=== PATIENT | male | born 1945 | race Caucasian/White ===

== ENCOUNTER → 2022-05-10 | Outpatient (CLI) | payer OTHER | END | disposition home or self-care (01) | LOC: LABPAT 11:37 | PROVIDERS: ATTEND Orthopaedic Surgery | DX: Z01.812 Encounter for preprocedural laboratory examination (principal); Z22.322 Carrier or suspected carrier of Methicillin resistant Staphylococcus aureus; M17.12 Unilateral primary osteoarthritis, left knee | CPT/HCPCS: 87070 ==

== ENCOUNTER 2022-06-20 05:36 | Day surgery (SDC) | payer OTHER ==
[2022-06-13 10:59] VITALS: BMI 29.0
[~2022-06-20 05:36] MED LIST: ACETAMINOPHEN TAB 500 MG TAB PO PRN; MELOXICAM 7.5 MG TAB PO PRN; TRANEXAMIC ACID IN NACL,ISO-OS 1,000 MG in SALINE 1 100ML.BAG IVPB PRN
[2022-06-20] MEDS ORDERED: ONDANSETRON 4 MG/2 ML VIAL IVP ONE (06:06)
[2022-06-20] MEDS ORDERED: DEXAMETHASONE SOD PHOSPHATE 4 MG/ML 1 ML VIAL IV ONE (06:06)
[2022-06-20] MEDS ORDERED: MIDAZOLAM 2 MG/2 ML VIAL IV PRN (06:06)
[2022-06-20] MEDS ORDERED: ACETAMINOPHEN TAB 500 MG TAB PO ONE (06:45)
[2022-06-20] MEDS: LACTATED RINGERS 1,000 ML IV SCH ×2 (07:00→19:02)
[2022-06-20] MEDS ORDERED: fentaNYL (PF) 50 MCG/ML 2 ML AMP IV ONE (07:06)
[2022-06-20] MEDS ORDERED: ROCURONIUM 10 MG/ML (5 ML VIAL) IV ONE (07:22)
[2022-06-20] MEDS ORDERED: LIDOCAINE 2% INJ 20 MG/ML (2 ML VIAL) ONE (07:22)
[2022-06-20] MEDS ORDERED: PROPOFOL 10 MG/ML 20 ML VIAL IV ONE (07:22)
[2022-06-20] MEDS ORDERED: fentaNYL (PF) 50 MCG/ML 2 ML AMP ONE (07:22)
[2022-06-20] MEDS ORDERED: GLYCOPYRROLATE 0.2 MG/ML 2 ML VIAL ONE (07:22)
[2022-06-20] MEDS ORDERED: NEOSTIGMINE 1 MG/ML 10 ML VIAL ONE (07:22)
[2022-06-20] MEDS ORDERED: SODIUM CHLORIDE 0.9% (PF) 10 ML VIAL ONE (07:22)
[2022-06-20] MEDS ORDERED: ROPIVACAINE 5 MG/ML 30 ML VIAL ONE (07:22)
[2022-06-20] MEDS ORDERED: TRANEXAMIC ACID IN NACL,ISO-OS 1,000 MG/100 ML BAG ONE (07:22)
[2022-06-20] MEDS ORDERED: LACTATED RINGERS 1,000 ML IV ONE ×2 (07:36→09:10)
--- NOTE | 2022-06-20 08:13 | HP ---
HISTORY AND PHYSICAL Surgery is scheduled for 06/20/2022. HISTORY OF PRESENT ILLNESS: Yassine Salas is a 76-year-old patient seen with symptomatic left knee osteoarthritis. We discussed options for treatment. He elected to proceed with left total knee arthroplasty. Consent was obtained. Medical clearance was provided. PAST MEDICAL HISTORY: Gastroesophageal reflux disease and hypertension. PAST SURGICAL HISTORY: Noncontributory. DAILY MEDICATIONS: 1. Benazepril. 2. Amlodipine. 3. Diclofenac. 4. Omeprazole. ALLERGIES: None. SOCIAL HISTORY: Denies current tobacco use. PHYSICAL EVALUATION OF THE LEFT KNEE: Range of motion is -4/5 to 125. Mild effusion. Tenderness in medial joint line. Crepitus in medial and patellofemoral compartments with range of motion. Pain with patellofemoral compression. Ligaments are stable. Hip rotation is without pain. Distal neurovascular exam is intact. LEFT KNEE RADIOGRAPHS: Reveal severe osteoarthritic changes. IMPRESSION: 1. Left knee osteoarthritis. 2. Hypertension. 3. Hyperlipidemia. PLAN: Left total knee arthroplasty. MMODL / TOANN: [id number] /
[2022-06-20] MEDS ORDERED: ceFAZolin 1,000 MG in SODIUM CHLORIDE 0.9% 1,000 ML IRRIGATION ONE (09:07)
[2022-06-20] MEDS ORDERED: HYDROmorphone 0.5 MG/0.5 ML SYRINGE IVP PRN ×2 (09:10)
[2022-06-20] MEDS ORDERED: ONDANSETRON 4 MG/2 ML VIAL IVP PRN (09:10)
[2022-06-20] MEDS ORDERED: HYDROcodone/APAP 5-325MG 1 EACH TAB PO PRN (09:10)
[2022-06-20] MEDS ORDERED: NALOXONE 0.4 MG/ML 1 ML VIAL IV PRN (09:10)
--- NOTE | 2022-06-20 09:10 | P.OP ---
Date of Procedure: 06/20/22 Preoperative Diagnosis: Left knee osteoarthritis Postoperative Diagnosis: Left knee osteoarthritis Procedure(s) Performed: Left total knee arthroplasty Implants: 1. Depuy attune size 8 left cruciate retaining cemented femur 2. Depuy attune size 8 fixed bearing cemented tibial baseplate 3. Depuy attune size 8 fixed bearing cruciate retaining 14 mm polyethylene tibial insert 4. Depuy attune 41 mm all polyethylene cemented patella Anesthesia: GETA, regional (Adductor canal catheter, Ipack block) Surgeon: Emeterio Torres Exterior Work Helper #1: Rigo Ramos Estimated Blood Loss (ml): 40 Pathology: other (Bone) Condition: stable Disposition: PACU Indications for Procedure: 76-year-old patient seen with symptomatic left knee osteoarthritis. After treatment options were discussed, he elected to proceed with total knee art hroplasty. Operative Findings: See description of procedure Description of Procedure: Patient was taken to the operative suite after having an adductor canal catheter placed by the department of anesthesia as well as an Ipack block for postoperative pain management. Patient underwent a general anesthetic by the department of anesthesia. Patient was given preoperative IV intake antibiotics and TXA. A well-padded tourniquet was placed about the left lower extremity. The lower extremity was then prepped and draped in the normal sterile orthopedic fashion. The extremity was elevated, a tourniquet was insufflated to 300. A standard anterior incision was made sharply through skin. Dissection was taken down through the subcutaneous soft tissues down to the extensor mechanism. A medial arthrotomy was performed, patella was everted and knee was flexed. There was advanced osteoarthritis noted. I introduced my distal intramedullary fem oral drill. I then introduced the distal femoral cutting jig. Samm THOMSON secured the cutting jig with 2 pins. I held retractors in position while Samm THOMSON performed the distal femoral resection through the guide area we now removed her distal femoral cutting guide. We now placed our 4-in-1 femoral cutting block and positioned and it was secured with 2 pins by Samm THOMSON while I held the block in position. The distal femoral finishing was now completed. A proximal tibial cutting guide was positioned. I held the guide in the appropriate position with both hands well Samm THOMSON inserted stabilizing pins into the guide. Proximal tibial cut was made. We now placed a trial femoral component into position, along with an appropriate size tibial tray and insert. We now took the knee through range of motion and had full extension good flexion and good overall soft tissue balance noted. The patella was everted and stabilized with 2 towel clips held by Samm THOMSON while I performed a flush with patellar quad tendon utilizing a fresh sawblade. We templated the patella, appropriate drill holes were made. An appropriate trial patella was positioned, knee was taken through full range of motion with the patella tracking very nicely. The trial patella was removed. Drill holes were made through the femoral component. All trial components were removed after marking off the appropriate rotation of the tibia. Retractors were now positioned along the proximal tibia. An appropriate keel punch was made with the appropriate size tibial guide by myself on Samm THOMSON assisted by holding retractors. At this point appropriate size implants were chosen and opened. The joint was irrigated copiously with pulse lavage mechanical irrigation. The posterior capsule was infiltrated with local analgesic. The wound was irrigated with pulse lavage mechanical irrigation. We mixed antibiotic methylmethacrylate. We placed the knee into flexion. We placed multiple retractors assisted by Samm THOMSON to expose the proximal tibia. Once the methyl methacrylate was ready, the tibial component was cemented into place removing any excess methylmethacrylate form by both myself and Samm THOMSON. The femoral component was cemented into place removing the removing any excess methylmethacrylate performed by both myself and Samm THOMSON. We then inserted the appropriate size polyethylene tibial insert. We made sure that it was locked into position. We took the knee into full extension, and then back in a flexion making sure we had removed any excess methylmethacrylate. The patellar component was then cemented down and secured with clamp. Excess methylmethacrylate removed. We kept the knee in full extension, patellar clamp in position until methylmethacrylate had hardened. Once it had hardened the patellar clamp was removed. The knee was taken through full range of motion. The patella tracked nicely. There was good soft tissue balancing. The tourniquet was now released. Additional hemostasis was achieved via electrocautery. A second gram of TXA was given. The wound again was irrigated with pulse lavage mechanical irrigation. The superficial soft tissues were infiltrated local analgesic. The extensor mechanism was repaired with Ethibond suture. We checked the repair with range of motion and it was stable. The subcutaneous soft tissues were repaired with Vicryl in layers. The skin was approximated with pernio/Dermabond. Sterile dressings were applied followed by loose web roll and David bandage. The patient was transferred to a bed, and taken to recovery in stable and satisfactory condition. Samm THOMSON assisted with this complex procedure.
--- NOTE | 2022-06-20 09:24 | P.ANPRN ---
Procedure Note - Anesthesia - Nerve Block Performed Left Adductor Canal Infusion Time Out Performed: Yes (0705) Date of Procedure: 06/20/22 Procedure Start Time: 07:06 Procedure Stop Time: 07:12 Location of Patient: PreOp Indication: Acute Post-Operative Pain, Requested by Surgeon Specifically requested for management of pain by DrBethany: Emeterio Torres Sedation Type: Sedate with meaningful contact maintained Preparation: Sterile Prep, Sterile Dressing Position: Supine Catheter Depth at Skin (cm): 8 Catheter: Indwelling Needle Types: Pajunk Needle Gauge: 18 Ultrasound used to visualize needle placement: Yes Ultrasound used to observe medication spread: Yes Injectate: 0.5% Ropivacaine (see comment for volume) (15cc+ 5cc nacl pf) Blood Aspirated: No Pain Paresthesia on Injection Noted: No Resistance on Injection: Normal Image Stored and Saved: Yes Events: Uneventful and Well Tolerated
--- NOTE | 2022-06-20 09:26 | P.ANPRN ---
Procedure Note - Anesthesia - Nerve Block Performed Left iPack Single Time Out Performed: Yes (0705) Date of Procedure: 06/20/22 Procedure Start Time: 07:13 Procedure Stop Time: 07:16 Location of Patient: PreOp Indication: Acute Post-Operative Pain, Requested by Surgeon Specifically requested for management of pain by DrBethany: Emeterio Torres Sedation Type: Sedate with meaningful contact maintained Preparation: Sterile Prep Position: Supine Catheter: None Needle Types: Pajunk Needle Gauge: 21 Ultrasound used to visualize needle placement: Yes Ultrasound used to observe medication spread: Yes Injectate: 0.5% Ropivacaine (see comment for volume) (15cc + 5cc nacl pf) Blood Aspirated: No Pain Paresthesia on Injection Noted: No Resistance on Injection: Normal Image Stored and Saved: Yes Events: Uneventful and Well Tolerated
[2022-06-20] MEDS: HYDROmorphone 0.5 MG/0.5 ML SYRINGE IVP PRN ×3 (09:44→20:23)
[2022-06-20] MEDS ORDERED: ROPIVACAINE 0.2%-NS ON-Q PUMP 1,090 MG, EMPTY PAIN BALL 1 EACH MISCELLANE PRN (09:55)
--- NOTE | 2022-06-20 10:03 | XR ---
EXAMINATION TYPE: XR knee limited LT DATE OF EXAM: 06/20/2022 COMPARISON: NONE HISTORY: 76-year-old male evaluation for postoperative abnormality in alignment TECHNIQUE: 2 views FINDINGS: Images show placement of left total knee arthroplasty. Both distal femoral and proximal tibial compon ents of the prosthesis are well seated without periprosthetic fracture. Alignment grossly anatomic. A nterior soft tissue swelling with soft tissue air as well as intra-articular air related to recent op eration. IMPRESSION: Uncomplicated postoperative appearance left total knee arthroplasty.
[2022-06-20] MEDS ORDERED: HYDROmorphone 0.5 MG/0.5 ML SYRINGE IVP ONE (10:05)
[2022-06-20] MEDS ORDERED: HYDROcodone/APAP 7.5-325MG 1 EACH TAB PO ONE (10:56)
[2022-06-20] MEDS ORDERED: ceFAZolin 1,000 MG VIAL IVPB ONE (11:14)
--- NOTE | 2022-06-20 16:33 | P.CONS ---
History of Present Illness - Reason for Consult Consult date: 06/20/22 - Chief Complaint Medical management - History of Present Illness 76-year-old man with medical history of anxiety, osteoarthritis, hypertension, BPH, history of alcohol abuse now 39 year sober presented for elective total knee arthroplasty. Patient is doing well postoperatively, his only complaint is regarding restarting his anxiety medication. He has no complaints of pain at this time. His review of systems is negative for fevers, chills, nausea, vomiting, chest pain, palpitations, syncopal, presyncopal, cough, dyspnea, abdominal pain, constipation, diarrhea, dysuria, dyschezia, numbness/weakness of extremities. At the time my evaluation, patient is afebrile, 142/78, 102, 92% on room air. No labs or imaging to review. All Systems reviewed and pertinent positives and negatives noted in HPI, all other symptoms are negative Gen: in no apparent distress, resting comfortably in bed Eyes: PERRL, no scleral injection or icterus HENT: normocephalic, atraumatic, good hearing acuity, moist mucous membranes Neck: no tracheal deviation, full range of motion Resp: good air exchange, breathing comfortably with no accessory muscle use, no tactile fremitus, clear to auscultation bilaterally CVS: good distal perfusion x 4, no pitting edema, regular rate and rhythm GI: soft, no tenderness to palpation, periumbilical area, ND, no hepatosplenomegaly : no suprapubic tenderness, no CVAT, whatley catheter not present MSK: no clubbing, no cyanosis, no noted contractures of extremities Skin: no noted rashes, petechiae; temperature of skin is appropriate Neuro: moving all extremities without signs of weakness, CN II-XII intact Psych: cooperative, euthymic mood, insight and judgment intact Assessment/plan: Anxiety Hypertension BPH -Resume home medications -CBC, BMP, magnesium in the morning Osteoarthritis Status post TKA -Care per primary team Thank you for this consult. A member of our team is available 29/05, please reach out via perfect serve should any questions or concerns arise. Past Medical History Past Medical History: Cancer, GERD/Reflux, Hearing Disorder / Deafness, Hypertension, Osteoarthritis (OA) Additional Past Medical History / Comment(s): Hx prostate cancer 2020, had radiation, then in 11/27 had high dose radiation. Very poor hearing. History of Any Multi-Drug Resistant Organisms: None Reported Past Surgical History: Orthopedic Surgery Additional Past Surgical History / Comment(s): Left shoulder surgery, metal placed. Bilateral cataract surgery. All teeth extracted. Past Anesthesia/Blood Transfusion Reactions: No Reported Reaction Past Psychological History: Anxiety, Depression, PTSD Smoking Status: Former smoker Past Alcohol Use History: Abuse Additional Past Alcohol Use History / Comment(s): Smoked cigars occasionally, quit 4 yrs ago. 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 Past Drug Use History: None Reported - Past Family History Mother Family Medical History: No Reported History Medications and Allergies Home Medications Medication Instructions Recorded Confirmed Type Benazepril HCl 40 mg PO QAM 06/13/22 06/13/22 History Cetirizine HCl [Zyrtec] 10 mg PO DAILY 06/13/22 06/13/22 History Diclofenac Sodium Gel [Voltaren 100 gm TOPICAL DIRECTED PRN 06/13/22 06/13/22 History Gel] Melatonin 3 mg PO HS 06/13/22 06/13/22 History Mirtazapine 45 mg PO HS 06/13/22 06/13/22 History Omeprazole 20 mg PO QAM 06/13/22 06/13/22 History Tamsulosin [Flomax] 0.4 mg PO HS 06/13/22 06/13/22 History amLODIPine BESYLATE 10 mg PO QAM 06/13/22 06/13/22 History buPROPion HCL [Wellbutrin SR] 150 mg PO 1200 06/13/22 06/13/22 History buPROPion HCL [buPROPion HCL SR] 300 mg PO QAM 06/13/22 06/13/22 History busPIRone HCL [Buspirone HCl] 10 mg PO TID 06/13/22 06/13/22 History Allergies Allergy/AdvReac Type Severity Reaction Status Date / Time No Known Allergies Allergy Verified 06/13/22 10:38 Physical Exam Osteopathic Statement: *. No significant issues noted on an osteopathic structural exam other than those noted in the History and Physical/Consult. Vitals: Vital Signs Temp Pulse Pulse Resp BP Pulse Ox 06/20/22 15:03 102 H 143/78 92 L 06/20/22 14:31 98 133/77 92 L 06/20/22 14:16 101 H 125/74 93 L 06/20/22 14:02 98.9 F 106 H 16 121/76 93 L 06/20/22 13:46 112 H 142/80 95 06/20/22 12:40 98 16 143/82 95 06/20/22 12:12 111 H 16 168/78 93 L 06/20/22 11:25 97 16 131/77 97 06/20/22 11:10 98 15 131/77 97 06/20/22 10:55 95 16 135/76 97 06/20/22 10:40 97 15 136/83 95 06/20/22 10:30 93 16 150/73 97 06/20/22 10:15 93 16 155/72 96 06/20/22 09:59 86 16 153/73 96 06/20/22 09:45 75 16 164/74 97 06/20/22 09:34 97.3 F L 83 16 141/67 95 06/20/22 07:15 73 18 152/73 100 06/20/22 06:30 97.1 F L 94 20 140/76 97 Intake and Output 06/20/22 06/20/22 06/20/22 06:59 14:59 22:59 Intake Total 1351 Output Total 40 Balance 1311 Intake: IV 1351 Output: Estimated Blood Loss 40 Other: Weight 99.1 kg
[2022-06-20] MEDS: busPIRone HCl 10 MG TAB PO SCH ×2 (17:14→20:20)
[2022-06-20] MEDS: HYDROcodone/APAP 7.5-325MG 1 EACH TAB PO PRN (19:06)
[2022-06-20] MEDS ORDERED: MIRTAZAPINE 45 MG TABLET PO SCH (21:00)
[2022-06-20] MEDS ORDERED: MELATONIN 3 MG TABLET PO SCH (21:00)
[2022-06-20] MEDS ORDERED: TAMSULOSIN 0.4 MG CAP.ER.24H PO SCH (21:00)
[2022-06-21] MEDS: LACTATED RINGERS 1,000 ML IV SCH (01:25)
[2022-06-21] MEDS: HYDROmorphone 0.5 MG/0.5 ML SYRINGE IVP PRN (03:30)
[2022-06-21] MEDS: HYDROcodone/APAP 7.5-325MG 1 EACH TAB PO PRN ×2 (05:58→11:16)
--- NOTE | 2022-06-21 07:09 | P.PN ---
Progress Note - Text Progress Note Date: 06/21/22 patient was seen and evaluated at bedside. Status post postoperative day 1 for left side total knee arthroplasty patient had adductor canal catheter for postop pain control. Patient rated pain at rest 3-4 out of 10 in severity. Patient describes pain is aching, throbbing type on the sides of the knee and back of the knee. Patient started walking with support. With activity patient pain levels are 5-6 out of 10 in severity. With the help of oral pain medications pain levels are tolerable. Patient denied any weakness/ numbness in lower extremities. patient denied any fever, pain over the catheter site. Physical exam: Patient vital signs stable Patient is alert awake oriented 3 responding to all questions appropriately Examination of the catheter site showed dressing intact, no leaking fluid around the catheter, no redness, no tenderness over the catheter insertion area. plan: status post postoperative day 1 for left-sided total knee arthroplasty with adductor canal catheter for pain control. Patient was discussed to continue the medication at the rate of 8 mL per hour until the pump is completely empty and instructed the patient how to discontinue the catheter.
[2022-06-21] MEDS ORDERED: PANTOPRAZOLE 40 MG TABLET PO SCH (07:30)
[2022-06-21 08:16] VITALS: BP 160/86; PULSE 91; RESP 18; TEMP 99.6
[2022-06-21] MEDS ORDERED: lisinopriL 20 MG TAB PO SCH (09:00)
[2022-06-21] MEDS ORDERED: LORATADINE 10 MG TAB PO SCH (09:00)
[2022-06-21] MEDS ORDERED: amLODIPine 10 MG TAB PO SCH (09:00)
[2022-06-21] MEDS ORDERED: ENOXAPARIN 40 MG/0.4 ML SYRINGE SQ SCH (09:00)
[2022-06-21] MEDS ORDERED: buPROPion SR 150 MG TABLET.ER PO SCH ×2 (09:00→12:00)
[2022-06-21 09:13] LABS: Basophils # (A) 0.03 X 10*3/uL (0.00-0.10); Basophils % (A) 0.3 %; Eosinophils # (A) 0.02 X 10*3/uL (0.04-0.35); Eosinophils % (A) 0.2 %; HCT 38.5 % (39.6-50.0); HGB 12.2 g/dL (13.0-17.0); Immature Grans, Automated 0.4 %; Lymphocytes % (A) 16.9 %; MCH 29.6 pg (27.0-32.0); MCHC 31.7 g/dL (32.0-37.0); MCV 93.4 fL (80.0-97.0); Mean Platelet Volume 10.1 fL (9.5-12.2); Monocytes # (A) 1.11 X 10*3/uL (0.20-1.00); Monocytes % (A) 9.8 %; NRBC Per 100 WBC 0 /100 WBCS (0.0-0.0); Neutrophils # (A) 8.17 X 10*3/uL (1.80-7.70); Neutrophils % (A) 72.4 %; Platelet Count 286 X 10*3/uL (140-440); RBC 4.12 X 10*6/uL (4.40-5.60); RDW 13.5 % (11.5-14.5); WBC 11.27 X 10*3/uL (4.50-10.00)
[2022-06-21 09:17] LABS: African American GFR (CKD) 76.3 (60.0-200.0); Anion Gap 10.2 mmol/L (10.00-18.00); BUN/Creat Ratio 11.3 Ratio (12.00-20.00); Blood Urea Nitrogen 12.2 mg/dL (9.0-27.0); Calcium 9.3 mg/dL (8.7-10.3); Carbon Dioxide 26.8 mmol/L (20.0-27.5); Magnesium 1.9 mg/dL (1.5-2.4); Non-African American GFR(CKD) 65.9 (60.0-200.0); Potassium 4.9 mmol/L (3.5-5.5)
[2022-06-21] MEDS: busPIRone HCl 10 MG TAB PO SCH (09:41)
--- NOTE | 2022-06-21 10:02 | P.DS ---
Providers Date of admission: 06/20/2022 Expected date of discharge: 06/21/22 Attending physician: Emeterio Torres Consults: 06/20/22 14:28 Consult Physician Routine Consulting Provider: Seble Salcedo Consult Reason/Comments: Medical Management s/p left total knee arthroplasty Do you want consulting provider notified?: Yes Primary care physician: Stated None Hospital Course: Date of admission: 06/20/2022 Date of discharge: 06/21/2022 Admission diagnosis: Left knee osteoarthritis Discharge diagnosis: Same Attending physician: Dr. Torres Surgical procedures: Left total knee arthroplasty Brief history: Patient is a 76-year-old male with a history of progressive primary left knee osteoarthritis. At this point patient has failed conservative treatment measures and has opted to proceed with a elective left total knee arthroplasty. Hospital course: Details of patient's surgery can be found in operative report. Patient tolerated the procedure well and was subsequently transported to orthopedic floor. Patient's orthopeidc and medical care was provided daily. Patient had daily laboratory tests performed for evaluation of overall blood counts. Patient had daily physical therapy to include strengthening range of motion as well as education with walker ambulation. Patient was treated with Lovenox for their postoperative DVT prophylaxis during their inpatient stay. Patient was noted to have a relatively uneventful postoperative course. Patient reported satisfactory pain control with oral pain medications by postoperative day 1. Patient showed satisfactory progress with physical therapy. Patient moved steadily through the program and had no difficulty meeting the goals by postoperative day 1. Given patient's otherwise satisfactory course and having met physical therapy goals, plan is to discharge patient home with health services on postoperative day 1. Discharge condition/disposition: Patient will be discharged home with health services in stable condition. Discharge medications: Instructions are given on resumption of patient's normal daily medications per primary care recommendation, in addition patient will be prescribed [place] 7.5 mg/325 mg; Colace; aspirin 81 mg twice a day 30 days. Discharge instructions: 1. Wound care and infection precautions, keep incision dry and covered while showering, no lotions, creams, moisturizers. No soaking, tubs, pools, hottubs. Do not scrub over the incision. 2. Weight-bear as tolerated with walker / cane until follow-up. 3. Ice and elevate when necessary. Do not exceed 20 minutes per hour with ice pack. 4. Utilize compression sleeve until seen at first follow up appointment. 5. Visiting nursing care. 6. Home physical therapy including home CPM. 7. Pain meds and anticoagulants per prescription. 8. Pain medication has potential to cause constipation. Increase oral fluid and fiber intake. Contact primary care provider if you have not had a bowel movement within 48 hours after discharge 9. No anti-inflammatory medication until discussed at first post operative visit, this including Motrin, Aleve, Mobic, Diclofenac. 10. Follow up in office at 2 weeks postop with Samm Ramos PA-C / Asael Everett PA-C 11. Follow up with your primary care doctor 7-10 days after discharge. 12. Contact [facility] with any questions, . Assessment: Left knee osteoarthritis Procedures: Left total knee arthroplasty Patient Condition at Discharge: Good Plan - Discharge Summary Discharge Rx Participant: No New Discharge Prescriptions: New Aspirin [Adult Low Dose Aspirin EC] 81 mg PO BID #60 tab Docusate [Colace] 100 mg PO DAILY #30 capsule HYDROcodone/APAP 7.5-325MG [[place] 7.5] 1 - 2 each PO Q6HR PRN #36 tab PRN Reason: Pain No Action Tamsulosin [Flomax] 0.4 mg PO HS Cetirizine HCl [Zyrtec] 10 mg PO DAILY amLODIPine BESYLATE 10 mg PO QAM Omeprazole 20 mg PO QAM Benazepril HCl 40 mg PO QAM buPROPion HCL [Wellbutrin SR] 150 mg PO 1200 buPROPion HCL [buPROPion HCL SR] 300 mg PO QAM Diclofenac Sodium Gel [Voltaren Gel] 100 gm TOPICAL DIRECTED PRN PRN Reason: Pain busPIRone HCL [Buspirone HCl] 10 mg PO TID Mirtazapine 45 mg PO HS Melatonin 3 mg PO HS Discharge Medication List Benazepril HCl 40 mg PO QAM 06/13/22 [History] Cetirizine HCl [Zyrtec] 10 mg PO DAILY 06/13/22 [History] Diclofenac Sodium Gel [Voltaren Gel] 100 gm TOPICAL DIRECTED PRN 06/13/22 [History] Melatonin 3 mg PO HS 06/13/22 [History] Mirtazapine 45 mg PO HS 06/13/22 [History] Omeprazole 20 mg PO QAM 06/13/22 [History] Tamsulosin [Flomax] 0.4 mg PO HS 06/13/22 [History] amLODIPine BESYLATE 10 mg PO QAM 06/13/22 [History] buPROPion HCL [Wellbutrin SR] 150 mg PO 1200 06/13/22 [History] buPROPion HCL [buPROPion HCL SR] 300 mg PO QAM 06/13/22 [History] busPIRone HCL [Buspirone HCl] 10 mg PO TID 06/13/22 [History] Aspirin [Adult Low Dose Aspirin EC] 81 mg PO BID #60 tab 06/21/22 [Rx] Docusate [Colace] 100 mg PO DAILY #30 capsule 06/21/22 [Rx] HYDROcodone/APAP 7.5-325MG [[place] 7.5] 1 - 2 each PO Q6HR PRN #36 tab 06/21/22 [Rx] Follow up Appointment(s)/Referral(s): Rigo Ramos PAC [PHYSICIAN SOFTWARE INTERN] - 2 Weeks Patient Instructions/Handouts: Knee Replacement (DC) Activity/Diet/Wound Care/Special Instructions: Orthopedic Discharge Instructions: 1. Wound care and infection precautions, keep incision dry and covered while showering, no lotions, creams, moisturizers. No soaking, pools, hot tubs. Do not scrub over incision. 2. Weight-bear as tolerated with walker / cane until follow-up. 3. Ice and elevate when necessary. Do not exceed 20 minutes per hour with ice pack. 4. Utilize compression sleeve until seen at first follow up appointment. 5. Pain meds and anticoagulants per prescription. 6. Pain medication has potential to cause constipation. Increase oral fluid and fiber intake. Contact primary care provider if you have not had a bowel movement within 48 hours after discharge. 7. No anti-inflammatory medication until discussed at first post operative vis it, this including Motrin, Aleve, Mobic, Diclofenac. 8. Follow up in office at 2 weeks postop with Samm Ramos PA-C / Asael Everett PA-C 9. Follow up with your primary care doctor 7-10 days after discharge. 10. Contact [facility] with any questions, . Dressing may be removed on 06/27/2022. While showering, cover dressing with Saran wrap. Keep incision clean, dry, intact. Discharge Disposition: HOME WITH HOME HEALTH SERVICES
--- NOTE | 2022-06-21 10:14 | P.PN ---
Subjective Progress Note Date: 06/21/22 Principal diagnosis: Left knee osteoarthritis Patient was seen at bedside this morning resting comfortably sitting up in chair. Patient says he is eager to go home today. Patient says he did do much better with physical therapy today. Patient says he was able to walk around the room using walker and up and down a couple of steps. Patient says he has urinated several times since surgery yesterday. Patient says he does have a walker at home. Patient denies chest pain, fever, shortness of breath, nausea, vomiting, change in vision, loss of bowel/bladder control Objective - Vital Signs Vital signs: Vital Signs Temp 99.6 F 06/21/22 08:00 Pulse 91 06/21/22 08:00 Resp 18 06/21/22 08:00 BP 160/86 06/21/22 08:00 Pulse Ox 93 L 06/21/22 08:00 FiO2 Intake & Output 06/20/22 06/21/22 06/21/22 18:59 06:59 18:59 Intake Total 1351 Output Total 40 Balance 1311 Weight 99.1 kg Intake: IV 1351 Output: Estimated Blood Loss 40 Other: Voiding Method Toilet Toilet # Voids 2 4 - Exam Left knee: Incision is clean, dry, and intact. The foam dressing is in good condition. There is minimal soft tissue swelling and ecchymosis surrounding the medial and lateral aspects of the incision. Calf is soft, no tenderness with palpation. Plantar flexion, dorsiflexion, EHL, FHL are intact. Sensory exam to light touch throughout the extremity is intact, dorsal pedis pulses 2+. - Labs CBC & Chem 7: 06/21/22 06:14 06/21/22 06:14 Labs: Abnormal Lab Results - Last 24 Hours (Table) 06/21/22 06/21/22 Range/Units 06:14 06:14 WBC 11.27 H (4.50-10.00) X 10*3/uL RBC 4.12 L (4.40-5.60) X 10*6/uL Hgb 12.2 L (13.0-17.0) g/dL Hct 38.5 L (39.6-50.0) % MCHC 31.7 L (32.0-37.0) g/dL Neutrophils # 8.17 H (1.80-7.70) X 10*3/uL Monocytes # 1.11 H (0.20-1.00) X 10*3/uL Eosinophils # 0.02 L (0.04-0.35) X 10*3/uL BUN/Creatinine Ratio 11.30 L (12.00-20.00) Ratio Glucose 123 H (70-110) mg/dL Assessment and Plan Assessment: Left knee osteoarthritis Postoperative day 1 status post left total knee arthroplasty Plan: 1. Left knee osteoarthritis - left total knee arthroplasty performed yesterday, 06/20/2022. Patient still does have this morning. Patient does have a walker at home use. Discharge home today with health services 2. Appreciate medical management 3. Pain management - [place] 7.5 mg/325 mg 4. DVT prophylaxis - aspirin 81 mg twice a day 30 days 5. GI prophylaxis - Colace 6. Encourage incentive spirometer use 7. PT/OT - weightbearing as tolerated with walker 8. Discharge planning - home with health services today Time with Patient: Less than 30
--- NOTE | 2022-06-21 13:10 | P.PN ---
Subjective Progress Note Date: 06/21/22 No new complaints today. Pt is doing well, medically stable for discharge. Gen: in no apparent distress, resting comfortably in bed Eyes: PERRL, no scleral injection or icterus HENT: normocephalic, atraumatic, good hearing acuity, moist mucous membranes Neck: no tracheal deviation, full range of motion Resp: good air exchange, breathing comfortably with no accessory muscle use, no tactile fremitus, clear to auscultation bilaterally CVS: good distal perfusion x 4, no pitting edema, regular rate and rhythm GI: soft, no tenderness to palpation, periumbilical area, ND, no hepatosplenomegaly : no suprapubic tenderness, no CVAT, whatley catheter not present MSK: no clubbing, no cyanosis, no noted contractures of extremities Skin: no noted rashes, petechiae; temperature of skin is appropriate Neuro: moving all extremities without signs of weakness, CN II-XII intact Psych: cooperative, euthymic mood, insight and judgment intact Assessment/plan: Anxiety Hypertension BPH -Resume home medications -CBC, BMP, magnesium in the morning Osteoarthritis Status post TKA -Care per primary team Thank you for this consult. A member of our team is available 29/05, please reach out via perfect serve should any questions or concerns arise. Objective - Vital Signs Vital signs: Vital Signs Temp 99.6 F 06/21/22 08:00 Pulse 91 06/21/22 08:00 Resp 18 06/21/22 08:00 BP 160/86 06/21/22 08:00 Pulse Ox 93 L 06/21/22 08:00 FiO2 Intake & Output 06/20/22 06/21/22 06/21/22 18:59 06:59 18:59 Intake Total 1351 Output Total 40 Balance 1311 Weight 99.1 kg Intake: IV 1351 Output: Estimated Blood Loss 40 Other: Voiding Method Toilet Toilet # Voids 2 4 - Labs CBC & Chem 7: 06/21/22 06:14 06/21/22 06:14 Labs: Abnormal Lab Results - Last 24 Hours (Table) 06/21/22 06/21/22 Range/Units 06:14 06:14 WBC 11.27 H (4.50-10.00) X 10*3/uL RBC 4.12 L (4.40-5.60) X 10*6/uL Hgb 12.2 L (13.0-17.0) g/dL Hct 38.5 L (39.6-50.0) % MCHC 31.7 L (32.0-37.0) g/dL Neutrophils # 8.17 H (1.80-7.70) X 10*3/uL Monocytes # 1.11 H (0.20-1.00) X 10*3/uL Eosinophils # 0.02 L (0.04-0.35) X 10*3/uL BUN/Creatinine Ratio 11.30 L (12.00-20.00) Ratio Glucose 123 H (70-110) mg/dL
== END 2022-06-21 11:20 | disposition home health service (06) ==
LOC: OR 05:36 → 4SSUR 13:05 → OR 06-21 11:20
PROVIDERS: ATTEND Orthopaedic Surgery
DX: M17.12 Unilateral primary osteoarthritis, left knee (principal); G89.18 Other acute postprocedural pain; F41.9 Anxiety disorder, unspecified; I10 Essential (primary) hypertension; F43.10 Post-traumatic stress disorder, unspecified; F32.A Depression, unspecified; N40.0 Benign prostatic hyperplasia without lower urinary tract symptoms; K21.9 Gastro-esophageal reflux disease without esophagitis; H91.90 Unspecified hearing loss, unspecified ear; Z85.46 Personal history of malignant neoplasm of prostate; Z87.891 Personal history of nicotine dependence; Z79.82 Long term (current) use of aspirin; Z79.899 Other long term (current) drug therapy
CPT/HCPCS: 97110; 97161; 64999; 64448; 76942; 73560; 27447; C1776; C1713 ×2; J2250; J1100; J0690 ×2; J2405; J3010; J1170; J2795; 80048; 83735; 85025; 88300

== ENCOUNTER 2022-07-26 14:16 | Emergency (ER) | payer OTHER, MEDICARE ==
--- NOTE | 2022-07-26 15:42 | ED ---
General Adult HPI - General Chief complaint: Fall Stated complaint: FALL,UTI Time Seen by Provider: 07/26/22 15:30 Source: patient, family, RN notes reviewed, old records reviewed Mode of arrival: wheelchair - History of Present Illness Initial comments: 76-year-old male, alert and oriented x4, presents with family complaining of foul-smelling urine for one week and generalized malaise. Patient states that he does have a history of depression is not sure if his symptoms are his depression or if he has an infection. He did undergo a left knee surgery with Dr. Ruiz in June of this year. He states yesterday he was walking into the house and tripped landing on his left knee. He states that it is painful with movement but not significantly different from before the fall. -: week(s) (1) Location: left, lower extremity (knee) Severity scale (1-10): 8 Consistency: intermittent Worsens with: movement Associated Symptoms: malaise, other (Foul-smelling urine) Treatments Prior to Arrival: none - Related Data Home Medications Medication Instructions Recorded Confirmed Benazepril HCl 40 mg PO QAM 06/13/22 06/13/22 Cetirizine HCl [Zyrtec] 10 mg PO DAILY 06/13/22 06/13/22 Diclofenac Sodium Gel [Voltaren 100 gm TOPICAL DIRECTED PRN 06/13/22 06/13/22 Gel] Melatonin 3 mg PO HS 06/13/22 06/13/22 Mirtazapine 45 mg PO HS 06/13/22 06/13/22 Omeprazole 20 mg PO QAM 06/13/22 06/13/22 Tamsulosin [Flomax] 0.4 mg PO HS 06/13/22 06/13/22 amLODIPine BESYLATE 10 mg PO QAM 06/13/22 06/13/22 buPROPion HCL [Wellbutrin SR] 150 mg PO 1200 06/13/22 06/13/22 buPROPion HCL [buPROPion HCL SR] 300 mg PO QAM 06/13/22 06/13/22 busPIRone HCL 10 mg PO TID 06/13/22 06/13/22 Previous Rx's Medication Instructions Recorded Aspirin [Adult Low Dose Aspirin EC] 81 mg PO BID #60 tab 06/21/22 Docusate [Colace] 100 mg PO DAILY #30 capsule 06/21/22 HYDROcodone/APAP 7.5-325MG [[place] 1 - 2 each PO Q6HR PRN #36 tab 06/21/22 7.5] Sulfamethox-Tmp 800-160Mg [Bactrim 1 each PO Q12HR 10 Days #20 tab 07/26/22 Ds] Allergies Allergy/AdvReac Type Severity Reaction Status Date / Time No Known Allergies Allergy Verified 07/26/22 14:26 Review of Systems ROS Statement: Those systems with pertinent positive or pertinent negative responses have been documented in the HPI. ROS Other: All systems not noted in ROS Statement are negative. Past Medical History Past Medical History: Cancer, GERD/Reflux, Hearing Disorder / Deafness, Hypertension, Osteoarthritis (OA) Additional Past Medical History / Comment(s): Hx prostate cancer 2020, had radia tion, then in 11/27 had high dose radiation. Very poor hearing. History of Any Multi-Drug Resistant Organisms: None Reported Past Surgical History: Orthopedic Surgery Additional Past Surgical History / Comment(s): Left shoulder surgery, metal placed. Bilateral cataract surgery. All teeth extracted. Past Anesthesia/Blood Transfusion Reactions: No Reported Reaction Past Psychological History: Anxiety, Depression, PTSD Smoking Status: Former smoker Past Alcohol Use History: Abuse Past Drug Use History: None Reported - Past Family History Mother Family Medical History: No Reported History General Exam Limitations: no limitations General appearance: alert, in no apparent distress Head exam: Present: atraumatic, normocephalic, normal inspection Eye exam: Absent: scleral icterus, conjunctival injection, periorbital swelling Neck exam: Present: normal inspection, full ROM. Absent: tenderness, meningismus Respiratory exam: Present: normal lung sounds bilaterally. Absent: respiratory distress, wheezes, rales, rhonchi, stridor, chest wall tenderness, accessory muscle use, decreased breath sounds Cardiovascular Exam: Present: regular rate GI/Abdominal exam: Present: soft. Absent: distended, tenderness, guarding, rebound, rigid Extremities exam: Present: normal capillary refill Left Knee exam: Present: full ROM, tenderness, swelling, ecchymosis, full knee extension. Absent: abrasion, deformity, crepitus, erythema Lower Leg exam: Absent: tenderness Ankle exam: Absent: tenderness Neurovascular tendon exam: Present: no vascular compromise. Absent: abnormal cap refill, extremity cold to touch, pallor, foot drop Back exam: Present: normal inspection, full ROM. Absent: tenderness, CVA tenderness (R), CVA tenderness (L), rash noted Neurological exam: Present: alert, oriented X3 Psychiatric exam: Present: normal affect, normal mood Skin exam: Present: warm, dry, normal color, other (left knee surgical incision without evidence of edema or drainage). Absent: cyanosis, diaphoretic Course Vital Signs 07/26/22 07/26/22 07/26/22 14:23 15:58 17:43 Temperature 98.2 F 98.1 F Pulse Rate 85 82 81 Respiratory 16 18 18 Rate Blood Pressure 131/70 147/80 135/74 O2 Sat by Pulse 96 96 95 Oximetry Medical Decision Making - Medical Decision Making UA shows greater than 182 white blood cells, occasional bacteria, negative nitrites. X-ray of the left knee was done after he fell on it yesterday. Soft tissue swelling is noted. Postop changes noted with appropriate alignment. Patient has no flank pain. Denies any abdominal pain. No fevers, no nausea vomiting or diarrhea. Vital signs are stable. The patient will be directed to increase his fluid intake, take antibiotics as prescribed. Follow up with his primary care doctor this week. Patient and family are agreeable to this plan of care. Return to the emergency room with any new or concerning symptoms. Case discussed with Dr. Sanchez - Lab Data Lab Results 07/26/22 Range/Units 16:07 Urine Color Yellow Urine Appearance Turbid (Clear) Urine pH 6.0 (5.0-8.0) Ur Specific [place] 1.019 (1.001-1.035) Urine Protein 1+ H (Negative) Urine Glucose (UA) Negative (Negative) Urine Ketones Trace H (Negative) Urine Blood Small H (Negative) Urine Nitrite Negative (Negative) Urine Bilirubin Negative (Negative) Urine Urobilinogen <2.0 (<2.0) mg/dL Ur Leukocyte Esterase Large H (Negative) Urine RBC 40 H (0-5) /hpf Urine WBC >182 H (0-5) /hpf Urine WBC Clumps Many H (None) /hpf Ur Squamous Epith Cells 1 (0-4) /hpf Urine Bacteria Occasional H (None) /hpf Hyaline Casts 10 H (0-2) /lpf Urine Mucus Moderate H (None) /hpf Disposition Clinical Impression: Fall, UTI (urinary tract infection) Disposition: HOME SELF-CARE Condition: Good Instructions (If sedation given, give patient instructions): Urinary Tract Infection in Men (ED), Fall Prevention for Older Adults (ED) Additional Instructions: Increase your fluid intake. Take antibiotics as prescribed. Follow-up with the primary care doctor this week. Return to the emergency room with any new or concerning symptoms including fevers, persistent nausea and vomiting, abdominal or back pain. Prescriptions: Sulfamethox-Tmp 800-160Mg [Bactrim Ds] 1 each PO Q12HR 10 Days #20 tab Is patient prescribed a controlled substance at d/c from ED?: No Referrals: Nonstaff,Physician [Primary Care Provider] - 1-2 days Time of Disposition: 17:24
[2022-07-26] MEDS ORDERED: HYDROcodone/APAP 5-325MG 1 EACH TAB PO STA (15:44)
[2022-07-26] MEDS ORDERED: IBUPROFEN 800 MG TAB PO STA (15:44)
[2022-07-26 16:07] VITALS: RESP 18
--- NOTE | 2022-07-26 16:29 | XR ---
EXAMINATION TYPE: XR knee complete LT DATE OF EXAM: 07/26/2022 4:05 PM INDICATION: Patient age:Male; 76 years old; Reason for study: fall; [facility]. COMPARISON: Left knee radiograph 07-28, 06/20/2022. TECHNIQUE: The Left knee(s) was examined in 3 projections. Frontal, lateral and oblique. FINDINGS: Post surgical changes from total knee arthroplasty. Hardware appears intact with appropria te alignment. No periprosthetic lucency. No acute fracture or dislocation. Mild soft tissue swelling of the anterior knee. No sizable joint effusion. IMPRESSION: 1. No acute osseous pathology. 2. Postoperative changes from total knee arthroplasty. Hardware appears intact with appropriate align ment. 3. Soft tissue swelling of the anterior knee.
[2022-07-26 16:30] LABS: Appearance,Urine Turbid (Clear); Bacteria,Urine Occasional /hpf; Bilirubin,Urine Negative (Negative); Blood,Urine Small (Negative); Color,Urine Yellow; Glucose,Urine (UA) Negative (Negative); Hyaline Casts,Urine 10 /lpf (0-2); Ketones,Urine Trace (Negative); Leukocyte Esterase,Urine Large (Negative); Mucus,Urine Moderate /hpf; Nitrite,Urine Negative (Negative); Protein,Urine 1+ (Negative); RBC,Urine 40 /hpf (0-5); Specific Gravity,Urine 1.019 (1.001-1.035); Squamous Epithelial Cell,Urine 1 /hpf (0-4); Urobilinogen,Urine <2.0 mg/dL (<2.0); WBC,Urine >182 /hpf (0-5)
[2022-07-26] MEDS ORDERED: SULFAMETHOX-TMP 800-160MG 1 EACH TAB PO STA (17:24)
[2022-07-26 17:45] VITALS: BP 135/74; PULSE 81; TEMP 98.1
== END 2022-07-26 17:45 | disposition home or self-care (01) ==
LOC: EC 14:16
DX: Z04.3 Encounter for examination and observation following other accident (principal); N39.0 Urinary tract infection, site not specified; D09.9 Carcinoma in situ, unspecified; K21.9 Gastro-esophageal reflux disease without esophagitis; I10 Essential (primary) hypertension; M19.90 Unspecified osteoarthritis, unspecified site; F41.9 Anxiety disorder, unspecified; F32.A Depression, unspecified; F43.10 Post-traumatic stress disorder, unspecified; Z79.82 Long term (current) use of aspirin; Z79.83 Long term (current) use of bisphosphonates; Z79.811 Long term (current) use of aromatase inhibitors
CPT/HCPCS: 81001; 87086; 99284